=== PATIENT | male | born 1945 | race Caucasian/White ===

== ENCOUNTER 2021-08-31 11:39 | Observation (INO) | payer MEDICARE, SELFPAY ==
[2021-08-31] VITALS (7 sets, daily range): BP systolic 127–174; BP diastolic 81–99; PULSE 56–78; RESP 14–19; TEMP 36.6–36.9; O2SAT 96–99; BMI 29.2
--- NOTE | 2021-08-31 11:58 | ECG_ITS ---
Test Reason : SYNCOPE Blood Pressure : / mmHG Vent. Rate : 054 BPM Atrial Rate : 054 BPM P-R Int : 196 ms QRS Dur : 080 ms QT Int : 440 ms P-R-T Axes : 003 -06 018 degrees QTc Int : 417 ms Sinus bradycardia Otherwise normal ECG No previous ECGs available Referred By: Jorge Moralez Electronically Signed By:NASREEN GHOSH MD
--- NOTE | 2021-08-31 11:59 | ED_ITS ---
HPI - Syncope General Chief Complaint: Syncope Stated Complaint: SYNCOPAL EPISODE Time Seen by Provider: 08/31/21 11:57 Source: patient Mode of arrival: ambulatory Limitations: no limitations History of Present Illness HPI narrative: 76 yo [place] ambulance [place]he was standing up at the check out line and felt dizzy and passed out complaint: felt faint and collapsed Onset (ago): hour(s) (1) Prodromal symptoms: lightheaded Witnessed: Yes - by Bystander Injuries sustained associated with event: none Current symptoms: none Related Data Home Medications Medication Instructions Recorded Confirmed atorvastatin 40 mg tablet 1 tab PO DAILY 08/31/21 08/31/21 brimonidine 0.2 % eye drops 1 drp OPHTHALMIC (EYE) BID 08/31/21 08/31/21 dorzolamide 22.3 mg-timolol 6.8 1 drp OPHTHALMIC (EYE) BID 08/31/21 08/31/21 mg/mL eye drops latanoprost 0.005 % eye drops 1 drp OPHTHALMIC (EYE) BEDTIME 08/31/21 08/31/21 Allergies Allergy/AdvReac Type Severity Reaction Status Date / Time No Known Allergies Allergy Verified 08/31/21 11:58 Review of Systems Review of Systems: Yes all other systems are reviewed and are negative Constitutional: Constitutional: Reports no additional constitutional complaint s Cardiovascular: Cardiovascular: Denies Epigastric Pain and Denies epigastric discomfort Respiratory: Respiratory: Reports no additional respiratory complaints Gastrointestinal: Gastrointestinal: Denies hematochezia Neurologic: Reports system reviewed and no additional complaints, except as documented Allergic/Immunologic: Allergic/Immunologic: Reports no additional allergic/immunologic complaints [facility] Past Medical History Medical History High cholesterol TIA (transient ischemic attack) Social History Social History Smoked in Last 30 Days: No Use of substances other than those prescribed or required for medical reasons: No Advance Directives: No Advance Directives Information Provided: Yes Physical Exam Vital Signs: Vital Signs: Last Vital Signs Temp 98.5 F 08/31/21 15:03 Pulse 71 08/31/21 16:28 Resp 14 08/31/21 16:28 BP 174/90 H 08/31/21 16:28 Pulse Ox 96 11/15/21 16:28 Body Mass Index 29.2 Const: General: cooperative Nutritional Appearance: average body habitus Orientation/consciousness: oriented to person, oriented to place, oriented to time and patient oriented x3 HENMT: Head: Yes normal to inspection Face and sinus: Yes normal facial exam Mouth: Normal oral and palatal mucosa present Neck: Neck: Yes normal visual inspection, Yes full ROM and Yes no lymphadenopathy Chest: Chest palpation & inspection: normal inspection of the chest and normal palpation of entire chest wall Resp: Effort & Inspection: normal respiratory effort Auscultation: clear to auscultation bilaterally Cardio: Jugular venous distension: no JVD Rate: regular rate Rhythm: regular rhythm GI: Inspection: Yes normal to inspection Palpation (GI): Soft to palpation, not firm, nontender and no pulsatile masses Skin: General skin exam: no rashes or lesions noted, elasticity normal, turgor normal and atrophy Neuro: General: oriented to person, oriented to place, oriented to time and patient oriented x3 MDM - Syncope Lab Data Result diagrams: 08/31/21 12:05 08/31/21 12:05 Labs: Lab Results 08/31/21 08/31/21 08/31/21 Range/Units 12:05 12:05 12:05 WBC 6.0 (4.8-10.8) X10*3/uL RBC 4.88 (4.60-5.80) X10*6/uL Hgb 14.5 (14.0-18.0) g/dl Hct 44.9 (42.0-52.0) % MCV 92.0 (80.0-98.0) fL MCH 29.7 (27.0-33.0) pg MCHC 32.3 (31.0-36.0) g/dl RDW 13.4 (11.0-16.0) % Plt Count 186 (160-400) X10*3/uL MPV 9.7 (9.4-12.4) fL Immature Gran % (Auto) 0.3 (0.0-0.4) % Neut % (Auto) 65.1 (45-73) % Lymph % (Auto) 22.3 (20-40) % Carroll % (Auto) 8.3 (2-11) % Eos % (Auto) 3.2 (0-4) % Baso % (Auto) 0.8 (0-2) % Lymph # (Auto) 1.3 (1.2-4.9) X10*3/uL Carroll # (Auto) 0.5 (0.1-1.2) X10*3/uL Eos # (Auto) 0.2 (0.0-0.4) X10*3/uL Baso # (Auto) 0.1 (0.0-0.2) X10*3/uL Abs Immat Gran (auto) 0.02 (0.00-0.03) X10*3/uL Absolute Neuts (auto) 3.9 (2.0-8.3) x10*3/uL Absolute Nucleated RBC 0.000 (0.0-0.012) X10*3/uL Nucleated RBC % (auto) 0.0 (0.0-0.2) /100WBC Sodium 141 (135-145) mmol/L Potassium 4.5 (3.3-5.1) mmol/L Chloride 109 H (96-108) mmol/L Carbon Dioxide 26 (22-29) mmol/L Anion Gap 11 L (12-20) BUN 16 (9-16) mg/dL Creatinine 0.95 (0.5-1.4) mg/dL Estim Creat Clear Calc 80.3 Estimated GFR > 60 Random Glucose 120 H (60-115) mg/dL Calcium 8.8 (8.4-10.2) mg/dL Total Bilirubin 2.0 H (0.0-1.0) mg/dL AST 23 (5-37) U/L ALT 41 H (0-40) U/L Alkaline Phosphatase 117 (39-117) U/L Troponin I High Sens < 3.5 (<3.5-35.0) ng/L Total Protein 6.8 (6.5-8.0) g/dL Albumin 4.1 (3.5-5.0) g/dL SARS-CoV-2 (PCR) Influenza Type A (PCR) (Negative) Influenza Type B (PCR) (Negative) RSV RNA Qual (PCR) (Negative) SARS-CoV-2 RNA (RT-PCR) (Negative) 08/31/21 08/31/21 Range/Units 13:47 14:01 WBC (4.8-10.8) X10*3/uL RBC (4.60-5.80) X10*6/uL Hgb (14.0-18.0) g/dl Hct (42.0-52.0) % MCV (80.0-98.0) fL MCH (27.0-33.0) pg MCHC (31.0-36.0) g/dl RDW (11.0-16.0) % Plt Count (160-400) X10*3/uL MPV (9.4-12.4) fL Immature Gran % (Auto) (0.0-0.4) % Neut % (Auto) (45-73) % Lymph % (Auto) (20-40) % Carroll % (Auto) (2-11) % Eos % (Auto) (0-4) % Baso % (Auto) (0-2) % Lymph # (Auto) (1.2-4.9) X10*3/uL Carroll # (Auto) (0.1-1.2) X10*3/uL Eos # (Auto) (0.0-0.4) X10*3/uL Baso # (Auto) (0.0-0.2) X10*3/uL Abs Immat Gran (auto) (0.00-0.03) X10*3/uL Absolute Neuts (auto) (2.0-8.3) x10*3/uL Absolute Nucleated RBC (0.0-0.012) X10*3/uL Nucleated RBC % (auto) (0.0-0.2) /100WBC Sodium (135-145) mmol/L Potassium (3.3-5.1) mmol/L Chloride (96-108) mmol/L Carbon Dioxide (22-29) mmol/L Anion Gap (12-20) BUN (9-16) mg/dL Creatinine (0.5-1.4) mg/dL Estim Creat Clear Calc Estimated GFR Random Glucose (60-115) mg/dL Calcium (8.4-10.2) mg/dL Total Bilirubin (0.0-1.0) mg/dL AST (5-37) U/L ALT (0-40) U/L Alkaline Phosphatase (39-117) U/L Troponin I High Sens (<3.5-35.0) ng/L Total Protein (6.5-8.0) g/dL Albumin (3.5-5.0) g/dL SARS-CoV-2 (PCR) Cancelled Influenza Type A (PCR) NEGATIVE (Negative) Influenza Type B (PCR) NEGATIVE (Negative) RSV RNA Qual (PCR) NEGATIVE (Negative) SARS-CoV-2 RNA (RT-PCR) NEGATIVE (Negative) ECG Data Attestation: I personally reviewed and interpreted this ECG as follows: ECG interpretation date: 08/31/21 ECG interpretation time: 12:35 Attending Attestation NSR 54 no ischemia changes Discharge Plan Discharge Clinical Impression: Syncope Patient Disposition: Admitted As Inpatient
[2021-08-31] MEDS: 0.9 % Sodium Chloride 1,000 ML 999 ML IVCONT (12:07)
[2021-08-31 12:11] LABS: MANUAL DIFF FLAG NO
[2021-08-31 12:13] LABS: Basophils Absolute Auto 0.1 X10*3/uL (0.0-0.2); Basophils Percent Auto 0.8 % (0-2); Eosinophils Absolute Auto 0.2 X10*3/uL (0.0-0.4); Eosinophils Percent Auto 3.2 % (0-4); Hematocrit 44.9 % (42.0-52.0); Hemoglobin 14.5 g/dl (14.0-18.0); Imm Gran Abs Auto 0.02 X10*3/uL (0.00-0.03); Imm Gran Pct Auto 0.3 % (0.0-0.4); Lymphocytes Absolute Auto 1.3 X10*3/uL (1.2-4.9); Lymphocytes Percent Auto 22.3 % (20-40); Mean Corpuscular HGB Conc 32.3 g/dl (31.0-36.0); Mean Corpuscular Hemoglobin 29.7 pg (27.0-33.0); Mean Platelet Volume 9.7 fL (9.4-12.4); Monocytes Absolute Auto 0.5 X10*3/uL (0.1-1.2); Monocytes Percent Auto 8.3 % (2-11); Neutrophils Absolute Auto 3.9 x10*3/uL (2.0-8.3); Neutrophils Percent Auto 65.1 % (45-73); Platelet Count 186 X10*3/uL (160-400); Red Blood Count 4.88 X10*6/uL (4.60-5.80); Red Cell Distribution Width 13.4 % (11.0-16.0)
[2021-08-31 12:39] LABS: Troponin-I High Sensitivity < 3.5 ng/L (<3.5-35.0)
[2021-08-31 12:45] LABS: Alanine Aminotransferase 41 U/L (0-40); Albumin Level 4.1 g/dL (3.5-5.0); Alkaline Phosphatase 117 U/L (39-117); Anion Gap 11 (12-20); Aspartate Amino Transferase 23 U/L (5-37); Blood Urea Nitrogen 16 mg/dL (9-16); Calcium 8.8 mg/dL (8.4-10.2); Carbon Dioxide 26 mmol/L (22-29); Chloride 109 mmol/L (96-108); Creatinine Clr Calc Pharmacy 80.3; Estimated Glomerular Filt Rate > 60; Glucose Random 120 mg/dL (60-115); Potassium 4.5 mmol/L (3.3-5.1); Sodium 141 mmol/L (135-145); Total Protein 6.8 g/dL (6.5-8.0)
--- NOTE | 2021-08-31 14:53 | PHA.MEDREC ---
Pharmacy Consult ? Medication Reconciliation Pharmacy has completed the medication reconciliation.
[2021-08-31 15:07] LABS: Influenza A PCR NEGATIVE (Negative); Influenza B PCR NEGATIVE (Negative); Resp Syncy Virus RNA Qual PCR NEGATIVE (Negative); SARS COV2 PCR INHOUSE NEGATIVE (Negative)
--- NOTE | 2021-08-31 15:37 | PM.IMHP ---
History of Present Illness Date of Service: 08/31/21 Chief Complaint: syncope 76-year-old male presented with syncope. Patient had been feeling well on day of presentation. He reports that he was standing at [facility] for over 40 minutes started to feel lightheaded. At 1st he sat down, then he got back up again and began to feel lightheaded again and then lost consciousness. He thinks on must have helped him to the ground as he did not have any seizures injury. He was unconscious for very brief moment, did not have any incontinence, was a little tired but otherwise asymptomatic after the event. He reports a very similar event happening in June of 2021. Patient denies any chest pain, fever, chills, shortness of breath. In ED EKG was unremarkable. Review of Systems Review of Systems: Constitutional: Denies fever, denies Chills Eyes: denies blurry vision ENT: denies sore throat CVS: denies chest pain Respiratory: Denies dyspnea GI: no abdominal pain : denies dysuria MSK: denies neck pain Skin: denies rash Neuro: denies specific motor weakness Psych: denies suicidal ideation Endocrine: denies heat/cold intolerance Hematologic: denies easy bleeding Allergy: denies hives [facility] Medical History High cholesterol TIA (transient ischemic attack) Pertinent family history: father of unknown cuase mother in car accident Social History Smoked in Last 30 Days: No Use of substances other than those prescribed or required for medical reasons: No Advance Directives: No Advance Directives Information Provided: Yes Meds Allergies Allergy/AdvReac Type Severity Reaction Status Date / Time No Known Allergies Allergy Verified 08/31/21 11:58 Active Medications: Current Medications Atorvastatin Calcium (Atorvastatin Calcium 40 Mg Tablet) 40 mg PO DAILY CARSON Brimonidine Tartrate (Brimonidine Tartrate 0.2% Oph 5 Ml Bottle) 1 drop EYE-BOTH BID CARSON Dorzolamide/Timolol (Dorzolamide/Timolo 2.23%/0.68% 10 Ml Drbtl) 1 drop EYE-BOTH BID CARSON Latanoprost (Latanoprost 0.005 % Ophth Carmella 2.5 Ml Drops) 1 drop EYE-BOTH BEDTIME CARSON Pharmacy Consult (Consult Rx Perform Med Rec) 1 each MISCELLANE ONCE PRN PRN Reason: Consult order Pharmacy Consult (Consult Rx Perform Med Rec) 1 each MISCELLANE ONCE PRN PRN Reason: Consult order Home Medications Medication Instructions Recorded Confirmed Last Taken Type atorvastatin 40 mg tablet 1 tab PO DAILY 08/31/21 08/31/21 08/31/21 History brimonidine 0.2 % eye drops 1 drp OPHTHALMIC (EYE) BID 08/31/21 08/31/21 08/31/21 History dorzolamide 22.3 mg-timolol 6.8 1 drp OPHTHALMIC (EYE) BID 08/31/21 08/31/21 08/31/21 History mg/mL eye drops latanoprost 0.005 % eye drops 1 drp OPHTHALMIC (EYE) BEDTIME 08/31/21 08/31/21 08/31/21 History Physical Exam Vital Signs and Narrative: Vital Signs: Last Vital Signs Temp 98.5 F 08/31/21 15:03 Pulse 56 08/31/21 15:03 Resp 14 08/31/21 15:03 BP 155/99 H 08/31/21 15:03 Pulse Ox 98 08/31/21 15:03 Body Mass Index 29.2 General: no acute distress HEENT: atraumatic Neck: normal to visual inspection CVS: S1, S2, RRR Resp: CTA bilateral Chest: non tender GI: soft, non tender, non distended : no CVA tenderness Skin: no rashes Extremities: no edema Neuro: Oriented X3, grossly intact Psych: cooperative Results Labs CBC and Chem 7: 08/31/21 12:05 08/31/21 12:05 Labs: Laboratory Results - last 24 hr 08/31/21 08/31/21 08/31/21 12:05 12:05 12:05 MCV 92.0 MCH 29.7 MCHC 32.3 RDW 13.4 Plt Count 186 MPV 9.7 Immature Gran % (Auto) 0.3 Neut % (Auto) 65.1 Lymph % (Auto) 22.3 Cloud % (Auto) 8.3 Eos % (Auto) 3.2 Baso % (Auto) 0.8 Lymph # (Auto) 1.3 Cloud # (Auto) 0.5 Eos # (Auto) 0.2 Baso # (Auto) 0.1 Abs Immat Gran (auto) 0.02 Absolute Neuts (auto) 3.9 Absolute Nucleated RBC 0.000 Nucleated RBC % (auto) 0.0 Anion Gap 11 L Estim Creat Clear Calc 80.3 Estimated GFR > 60 Random Glucose 120 H Calcium 8.8 Total Bilirubin 2.0 H AST 23 ALT 41 H Alkaline Phosphatase 117 Troponin I High Sens < 3.5 Total Protein 6.8 Albumin 4.1 SARS-CoV-2 (PCR) Influenza Type A (PCR) Influenza Type B (PCR) RSV RNA Qual (PCR) SARS-CoV-2 RNA (RT-PCR) 08/31/21 08/31/21 13:47 14:01 MCV MCH MCHC RDW Plt Count MPV Immature Gran % (Auto) Neut % (Auto) Lymph % (Auto) Cloud % (Auto) Eos % (Auto) Baso % (Auto) Lymph # (Auto) Cloud # (Auto) Eos # (Auto) Baso # (Auto) Abs Immat Gran (auto) Absolute Neuts (auto) Absolute Nucleated RBC Nucleated RBC % (auto) Anion Gap Estim Creat Clear Calc Estimated GFR Random Glucose Calcium Total Bilirubin AST ALT Alkaline Phosphatase Troponin I High Sens Total Protein Albumin SARS-CoV-2 (PCR) Cancelled Influenza Type A (PCR) NEGATIVE Influenza Type B (PCR) NEGATIVE RSV RNA Qual (PCR) NEGATIVE SARS-CoV-2 RNA (RT-PCR) NEGATIVE Assessment and Plan (1) Syncope: Status: Acute 76M presented with syncope syncope likely orhtostatic, rule out arrythmia monitor on tele check orthostatics glaucoma conitnue eye drops hld statin dvt prophylaxis - lovenox full code Quality Stroke Does the patient have a stroke diagnosis?: No VTE Prior VTE?: No VTE Risk Level:: Medical - moderate - high VTE Device Contraindication: Treatment Not Indicated VTE Drug Contraindication: N/A - Med Ordered
[2021-08-31] MEDS: 0.9 % Sodium Chloride Flush 3 ML SYRINGE IVFLUSH (16:30)
[2021-08-31] MEDS: Enoxaparin Sodium 40 MG/0.4 ML SYRINGE SUBCUT (16:30)
--- NOTE | 2021-08-31 19:30 | PC.NURSE ---
ASSUMED CARE OF PT. PT DENIES COMPLAINTS AND RESTING AT THIS TIME. RESPIRATIONS EASY, N/L. SKIN W/D. PT AWAITING FOR ROOM ASSIGNMENT. PT ON MONITOR. VS OBTAINED
--- NOTE | 2021-08-31 23:23 | PC.NURSE ---
This RN attempted to pull pt's eyedrops from [facility] but meds are not available. This RN did global search but no identified locations of meds available. Meds documented as not available. Pt made aware. Plan for pt to be medicated per orders tomorrow. Orthostatic VS obtained, pt positive for orthostatic hypotension. This RN placed pt with red fall prevention socks, red fall alert wrist band, and red fall star posted outside of room. Primary RN Jaqueline is aware. Pt provided call awan, instructed to use it for all needs and educated not to get out of bed without staff present. Pt expresses understanding and is agreeable. Stretcher low locked, rails raised x 2, call awan within reach.
--- NOTE | 2021-08-31 23:35 | MHC.CM.PN ---
Cm met with admitted patient with bed assignment pending. Elmo&Ox3Chandler GILLETTE reviewed and signed per protocol 08/31/21@240. HCP not on file. HCP/ Caron Mckinnon ([phone]). Copy requested. Pt is an [employer] . Pt is not [employer]. Lives with . Pt is retired. Uses no DME or services. D/C plan is home without services. to provide transportation home. CM to follow for d/c needs.
[2021-09-01 01:30] VITALS: BP 132/78; PULSE 78; RESP 18; O2SAT 97
--- NOTE | 2021-09-01 03:44 | PC.NURSE ---
pt resting in stretcher awaiting for room assignment. respirations easy, n/l. skin w/d. will continue to monitor pt.
[2021-09-01 04:46] VITALS: BP 127/87; PULSE 78; RESP 16; O2SAT 97
[2021-09-01 07:13] LABS: Hematocrit 43.1 % (42.0-52.0); Mean Corpuscular HGB Conc 32.5 g/dl (31.0-36.0); Mean Corpuscular Hemoglobin 29.2 pg (27.0-33.0); Mean Corpuscular Volume 89.8 fL (80.0-98.0); Mean Platelet Volume 10.2 fL (9.4-12.4); Platelet Count 171 X10*3/uL (160-400); Red Cell Distribution Width 13.1 % (11.0-16.0); White Blood Count 5.5 X10*3/uL (4.8-10.8)
[2021-09-01 07:56] LABS: Anion Gap 10 (12-20); Blood Urea Nitrogen 13 mg/dL (9-16); Calcium 8.5 mg/dL (8.4-10.2); Carbon Dioxide 24 mmol/L (22-29); Chloride 108 mmol/L (96-108); Creatinine Clr Calc Pharmacy 95.4; Estimated Glomerular Filt Rate > 60; Glucose Random 112 mg/dL (60-115); Potassium 3.6 mmol/L (3.3-5.1); Sodium 138 mmol/L (135-145)
[2021-09-01 09:21] VITALS: BP 150/95; PULSE 63; RESP 16; TEMP 36.5; O2SAT 98; O2SAT 99
[2021-09-01] MEDS: 0.9 % Sodium Chloride Flush 3 ML SYRINGE IVFLUSH (09:26)
[2021-09-01] MEDS: Brimonidine Tartrate 0.2% Oph 5 ML BOTTLE 1 DROP EYE-BOTH (09:26)
[2021-09-01] MEDS: Dorzolamide/Timolo 2.23%/0.68% 10 ML DRBTL 1 DROP EYE-BOTH (09:26)
[2021-09-01] MEDS: Latanoprost 0.005 % Ophth Sol 2.5 ML DROPS 1 DROP EYE-BOTH (09:27)
--- NOTE | 2021-09-01 11:45 | PM.DS ---
DS: Providers Provider Date of Service: 09/01/21 Date of admission: 08/31/21 15:36 Primary care physician: Robi Murray MD DS: Diagnosis Discharge Diagnosis (1) Syncope: Status: Acute DS: Summary Hospital Course Hospital Course: Patient was admitted for syncope. He had no events on telemetry. His orthostatics were positive , systolic blood pressure of about 150 while lying down and about 120 while standing.. This is most likely etiology of his syncope. Is feeling much better will be discharged home. He is instructed to take orthostatic precautions. Time Spent with Patient Time attestation: Total time spent providing and/or coordinating discharge services: Discharge coordination time: Greater than 30 minutes Quality: Stroke Does the patient have a stroke diagnosis?: No Physical Exam Vital Signs: Vital Signs: Last Vital Signs Temp 97.7 F 09/01/21 09:21 Pulse 63 09/01/21 09:21 Resp 16 09/01/21 09:21 BP 150/95 H 09/01/21 09:21 Pulse Ox 98 09/01/21 09:21 Body Mass Index 29.2 General: AO X 3, no acute distress Resp: CTA bilateral, no accessory muscles used CVS: S1,S2,RRR GI: soft, non tender, non distended Neuro: motor grossly intact, alert Psych: appropriate affect, appropriate insight DS: Data Data Completed and Pending Labs on day of discharge: Laboratory Results - last 24 hr 08/31/21 08/31/21 08/31/21 12:05 12:05 12:05 WBC 6.0 RBC 4.88 Hgb 14.5 Hct 44.9 MCV 92.0 MCH 29.7 MCHC 32.3 RDW 13.4 Plt Count 186 MPV 9.7 Immature Gran % (Auto) 0.3 Neut % (Auto) 65.1 Lymph % (Auto) 22.3 Dawes % (Auto) 8.3 Eos % (Auto) 3.2 Baso % (Auto) 0.8 Lymph # (Auto) 1.3 Dawes # (Auto) 0.5 Eos # (Auto) 0.2 Baso # (Auto) 0.1 Abs Immat Gran (auto) 0.02 Absolute Neuts (auto) 3.9 Absolute Nucleated RBC 0.000 Nucleated RBC % (auto) 0.0 Sodium 141 Potassium 4.5 Chloride 109 H Carbon Dioxide 26 Anion Gap 11 L BUN 16 Creatinine 0.95 Estim Creat Clear Calc 80.3 Estimated GFR > 60 Random Glucose 120 H Calcium 8.8 Total Bilirubin 2.0 H AST 23 ALT 41 H Alkaline Phosphatase 117 Troponin I High Sens < 3.5 Total Protein 6.8 Albumin 4.1 SARS-CoV-2 (PCR) Influenza Type A (PCR) Influenza Type B (PCR) RSV RNA Qual (PCR) SARS-CoV-2 RNA (RT-PCR) 08/31/21 08/31/21 09/01/21 13:47 14:01 06:41 WBC 5.5 RBC 4.80 Hgb 14.0 Hct 43.1 MCV 89.8 MCH 29.2 MCHC 32.5 RDW 13.1 Plt Count 171 MPV 10.2 Immature Gran % (Auto) Neut % (Auto) Lymph % (Auto) Dawes % (Auto) Eos % (Auto) Baso % (Auto) Lymph # (Auto) Dawes # (Auto) Eos # (Auto) Baso # (Auto) Abs Immat Gran (auto) Absolute Neuts (auto) Absolute Nucleated RBC 0.000 Nucleated RBC % (auto) 0.0 Sodium Potassium Chloride Carbon Dioxide Anion Gap BUN Creatinine Estim Creat Clear Calc Estimated GFR Random Glucose Calcium Total Bilirubin AST ALT Alkaline Phosphatase Troponin I High Sens Total Protein Albumin SARS-CoV-2 (PCR) Cancelled Influenza Type A (PCR) NEGATIVE Influenza Type B (PCR) NEGATIVE RSV RNA Qual (PCR) NEGATIVE SARS-CoV-2 RNA (RT-PCR) NEGATIVE 09/01/21 06:41 WBC RBC Hgb Hct MCV MCH MCHC RDW Plt Count MPV Immature Gran % (Auto) Neut % (Auto) Lymph % (Auto) Dawes % (Auto) Eos % (Auto) Baso % (Auto) Lymph # (Auto) Dawes # (Auto) Eos # (Auto) Baso # (Auto) Abs Immat Gran (auto) Absolute Neuts (auto) Absolute Nucleated RBC Nucleated RBC % (auto) Sodium 138 Potassium 3.6 Chloride 108 Carbon Dioxide 24 Anion Gap 10 L BUN 13 Creatinine 0.80 Estim Creat Clear Calc 95.4 Estimated GFR > 60 Random Glucose 112 Calcium 8.5 Total Bilirubin AST ALT Alkaline Phosphatase Troponin I High Sens Total Protein Albumin SARS-CoV-2 (PCR) Influenza Type A (PCR) Influenza Type B (PCR) RSV RNA Qual (PCR) SARS-CoV-2 RNA (RT-PCR) Discharge Plan Discharge Patient Disposition: Home, Self-Care Discharge Diagnosis: sycnope Referrals: Robi Murray MD [Primary Care Provider] - 1 Week Discharge Medications: Continued latanoprost 0.005 % drops 1 drp ophthalmic (eye) BEDTIME RF: 0 atorvastatin 40 mg tablet 1 tab PO DAILY RF: 0 brimonidine 0.2 % Drops 1 drp OPHTHALMIC (EYE) BID RF: 0 dorzolamide-timolol 22.3-6.8 mg/mL Drops 1 drp OPHTHALMIC (EYE) BID RF: 0 Discharge Orders: Discharge Order (Routine); Ordered 09/01/21 Ordered By: Adam Irving Diet: advance to usual diet Activity on Discharge: As tolerated Stand Alone Forms: Patient Portal Discharge page Care Plan Goals: avoid syncope Health Concerns: orthostatic hypotension Plan of Treatment: take precautions when you are in a situation where he had to stand for long time. Assessment: see above
--- NOTE | 2021-09-01 12:09 | MHC.CM.PN ---
PT DISCHARGING HOME SELF-CARE, PT'S TO TRANSPORT
== END 2021-09-01 12:21 | disposition home or self-care (01) ==
LOC: HO.ED 15:18 → HO.EDOVER 15:40 → HO.S3 09-01 11:54 → HO.EDOVER 09-01 12:07
PROVIDERS: Admitting Provider Internal Medicine; Emergency Provider Emergency Medicine; PCP Internal Medicine; Visit Provider Internal Medicine
DX: R55 Syncope and collapse (principal); I10 Essential (primary) hypertension; R00.1 Bradycardia, unspecified; E78.00 Pure hypercholesterolemia, unspecified; Z20.822 Contact with and (suspected) exposure to COVID-19; Z79.82 Long term (current) use of aspirin; Z79.899 Other long term (current) drug therapy
CPT/HCPCS: 0241U; 36415; 80048; 80053; 84484; 85025; 85027; 93005; 96360; 96372; 99219; 99285; J1650; U0003; U0005